=== PATIENT | female | born 1965 | race Caucasian/White ===

== ENCOUNTER 2016-10-03 17:52 | Emergency (ER) | payer OTHER ==
[~2016-10-03] VITALS: Ht 154.9 cm; Wt 99.0 kg
[~2016-10-03 17:52] MED LIST: CARV6.252 PO; LISI-360 PO; PRAV10 PO; [UNRECOGNIZED DRUG - CODE] PO
[2016-10-03 17:58] VITALS: BP 146/97; PULSE 86; RESP 16; TEMP 98.6; O2SAT 97
[2016-10-03] MEDS ORDERED: PRAV40TA2 PO (18:23)
[2016-10-03] MEDS ORDERED: LISI20TA PO (18:23)
[2016-10-03] MEDS ORDERED: CARV6.252 PO (18:23)
--- NOTE | 2016-10-03 18:42 | PD ---
HPI Chief Complaint: Multiple complaints Time Seen by Provider: 18:15 Travel History International Travel<30 days: No Contact w/Intl Traveler<30days: No Traveled to known affect area: No History of Present Illness HPI 51yo F with PMH of HTN and HLD presents to the ED with multiple complaints. States she was driving and at around 1pm when this tingling sensation that started in her head and went through her entire body and some lightheadedness lasted a minute. States it would come back but go away on its own. States she feels she has heavy breathing but is not sob. States she just does not feel well and it is hard to describe. Pt has been more stressed at work. She checked her blood pressure at home and it was systolic 160 so she was concern and came to the ED. BP in the ED is 146/97. Denies any fever, chest pain, visual changes, n/v, abdominal pain, focal weakness or numbness. PFSH Past Medical History High Cholesterol: Yes Diminished Hearing: No Hypertension: Yes ?: Not Past Surgical History Cholecystectomy: Yes Social History Alcohol Use: Yes (SOC) Tobacco Use: Yes (1/2 ppd) Substance Use: No Allergies-Medications (Allergen,Severity, Reaction): Coded Allergies: Penicillin (Verified Allergy, Intermediate, Hives, 10/03/16) Reported Meds & Prescriptions Reported Meds & Active Scripts Active Reported Carvedilol 6.25 Mg Tab 6.25 Mg PO BID Lisinopril-Hctz 20-12.5 Mg Tab 1 Tab PO DAILY Pravastatin 40 Mg Tab 40 Mg PO DAILY Review of Systems Except as stated in HPI: all other systems reviewed are Neg Physical Exam Narrative GENERAL: 51yo F not in distress. SKIN: Warm and dry. HEAD: Atraumatic. Normocephalic. EYES: Pupils equal and round. EOMI. +Horizontal nystagmus. No scleral icterus. No injection or drainage. ENT: No nasal bleeding or discharge. Mucous membranes pink and moist. NECK: Trachea midline. No JVD. CARDIOVASCULAR: Regular rate and rhythm. No murmur appreciated. RESPIRATORY: No accessory muscle use. Clear to auscultation. Breath sounds equal bilaterally. Pt speaking in complete sentences. GASTROINTESTINAL: Abdomen soft, non-tender, nondistended. No rebound tenderness or guarding. MUSCULOSKELETAL: No obvious deformities. No clubbing. No cyanosis. No edema. NEUROLOGICAL: Awake and alert. No obvious cranial nerve deficits. Motor grossly within normal limits. Normal speech. PSYCHIATRIC: Pt appears anxious. Data Data Last Documented VS Vital Signs Date Time Temp Pulse Resp B/P Pulse Ox O2 Delivery O2 Flow Rate FiO2 10/03/16 19:12 18 97 Room Air 10/03/16 19:12 68 132/78 10/03/16 17:58 98.6 Orders Electrocardiogram (10/03/16 ) Complete Blood Count With Diff (10/03/16 18:34) Comprehensive Metabolic Panel (10/03/16 18:34) Magnesium (Mg) (10/03/16 18:34) Thyroid Stimulating Hormone (10/03/16 18:34) Lorazepam (Ativan) (10/03/16 18:45) Labs Laboratory Tests Test 10/03/16 18:41 White Blood Count 7.2 TH/MM3 Red Blood Count 4.60 MIL/MM3 Hemoglobin 14.9 GM/DL Hematocrit 43.4 % Mean Corpuscular Volume 94.4 FL Mean Corpuscular Hemoglobin 32.3 PG Mean Corpuscular Hemoglobin 34.2 % Concent Red Cell Distribution Width 12.0 % Platelet Count 236 TH/MM3 Mean Platelet Volume 8.3 FL Neutrophils (%) (Auto) 60.5 % Lymphocytes (%) (Auto) 28.0 % Monocytes (%) (Auto) 5.9 % Eosinophils (%) (Auto) 4.8 % Basophils (%) (Auto) 0.8 % Neutrophils # (Auto) 4.4 TH/MM3 Lymphocytes # (Auto) 2.0 TH/MM3 Monocytes # (Auto) 0.4 TH/MM3 Eosinophils # (Auto) 0.3 TH/MM3 Basophils # (Auto) 0.1 TH/MM3 CBC Comment DIFF FINAL Differential Comment Sodium Level 140 MEQ/L Potassium Level 3.9 MEQ/L Chloride Level 105 MEQ/L Carbon Dioxide Level 27.0 MEQ/L Anion Gap 8 MEQ/L Blood Urea Nitrogen 15 MG/DL Creatinine 0.71 MG/DL Estimat Glomerular Filtration 86 ML/MIN Rate Random Glucose 95 MG/DL Calcium Level 8.7 MG/DL Magnesium Level 2.0 MG/DL Total Bilirubin 0.3 MG/DL Aspartate Amino Transf 13 U/L (AST/SGOT) Alanine Aminotransferase 28 U/L (ALT/SGPT) Alkaline Phosphatase 113 U/L Total Protein 7.1 GM/DL Albumin 3.6 GM/DL Thyroid Stimulating Hormone 0.911 uIU/ML 3rd Gen [facility] Medical Decision Making Medical Screen Exam Complete: Yes Emergency Medical Condition: Yes Interpretation(s) EKG: NSR 53bpm. Normal axis. No ST segment elevation or depression. T wave flattening in V2. Q wave III, aVF. Laboratory Tests Test 10/03/16 18:41 White Blood Count 7.2 TH/MM3 (4.0-11.0) Red Blood Count 4.60 MIL/MM3 (4.00-5.30) Hemoglobin 14.9 GM/DL (11.6-15.3) Hematocrit 43.4 % (35.0-46.0) Mean Corpuscular Volume 94.4 FL (80.0-100.0) Mean Corpuscular Hemoglobin 32.3 PG (27.0-34.0) Mean Corpuscular Hemoglobin 34.2 % Concent (32.0-36.0) Red Cell Distribution Width 12.0 % (11.6-17.2) Platelet Count 236 TH/MM3 (150-450) Mean Platelet Volume 8.3 FL (7.0-11.0) Neutrophils (%) (Auto) 60.5 % (16.0-70.0) Lymphocytes (%) (Auto) 28.0 % (9.0-44.0) Monocytes (%) (Auto) 5.9 % (0.0-8.0) Eosinophils (%) (Auto) 4.8 % (0.0-4.0) Basophils (%) (Auto) 0.8 % (0.0-2.0) Neutrophils # (Auto) 4.4 TH/MM3 (1.8-7.7) Lymphocytes # (Auto) 2.0 TH/MM3 (1.0-4.8) Monocytes # (Auto) 0.4 TH/MM3 (0-0.9) Eosinophils # (Auto) 0.3 TH/MM3 (0-0.4) Basophils # (Auto) 0.1 TH/MM3 (0-0.2) CBC Comment DIFF FINAL Differential Comment Sodium Level 140 MEQ/L (136-145) Potassium Level 3.9 MEQ/L (3.5-5.1) Chloride Level 105 MEQ/L (98-107) Carbon Dioxide Level 27.0 MEQ/L (21.0-32.0) Anion Gap 8 MEQ/L (5-15) Blood Urea Nitrogen 15 MG/DL (7-18) Creatinine 0.71 MG/DL (0.50-1.00) Estimat Glomerular Filtration 86 ML/MIN (>89) Rate Random Glucose 95 MG/DL (74-106) Calcium Level 8.7 MG/DL (8.5-10.1) Magnesium Level 2.0 MG/DL (1.5-2.5) Total Bilirubin 0.3 MG/DL (0.2-1.0) Aspartate Amino Transf 13 U/L (15-37) (AST/SGOT) Alanine Aminotransferase 28 U/L (10-53) (ALT/SGPT) Alkaline Phosphatase 113 U/L (45-117) Total Protein 7.1 GM/DL (6.4-8.2) Albumin 3.6 GM/DL (3.4-5.0) Thyroid Stimulating Hormone 0.911 uIU/ML 3rd Gen (0.358-3.740) Differential Diagnosis Anxiety vs. electrolyte abnormality vs. thyroid disorder vs. arrhythmia Narrative Course 51yo F with symptoms consistent with anxiety. Labs reviewed, no leukocytosis. Magnesium normal. Calcium normal. CMP unremarkable. TSH normal. Pt given ativan 0.5mg PO and feels better. Pt denies any more tingling in her body. VS showed normal BP, HR and pulse oximetry. Pt is well appearing and has no complaints now. Return precautions given. Diagnosis Primary Impression: Anxiety Patient Instructions: General Instructions Departure Forms: Tests/Procedures Additional Instructions: Please follow up with your PMD in 3-7 days. Return to the ED if symptoms worsen. Med/Other Pt SpecificInfo: No Change to Meds Disposition: 01 DISCHARGE HOME Condition: Stable Luli Figueroa Oct 03, 2016 18:42
[2016-10-03] MEDS ORDERED: LORazepam 0.5 MG TAB PO ONE (18:45)
[2016-10-03 18:51] LABS: AUTOMATED NEUTROPHIL # 4.4 TH/MM3 (1.8-7.7); BASOPHIL # 0.1 TH/MM3 (0-0.2); BASOPHIL % 0.8 % (0.0-2.0); EOSINOPHIL # 0.3 TH/MM3 (0-0.4); EOSINOPHIL % 4.8 % (0.0-4.0); HEMATOCRIT 43.4 % (35.0-46.0); HEMO FLAGS DIFF FINAL; MEAN CELL VOLUME 94.4 FL (80.0-100.0); MEAN CORPUSCULAR HEMOGLOBIN 32.3 PG (27.0-34.0); MEAN CORPUSCULAR HGB CONC 34.2 % (32.0-36.0); MONO % 5.9 % (0.0-8.0); NEUT % 60.5 % (16.0-70.0); PLATELET COUNT 236 TH/MM3 (150-450); WHITE BLOOD COUNT 7.2 TH/MM3 (4.0-11.0)
[2016-10-03 18:59] LABS: CHLORIDE 105 MEQ/L (98-107); POTASSIUM 3.9 MEQ/L (3.5-5.1); SODIUM (NA) 140 MEQ/L (136-145)
[2016-10-03 19:02] LABS: ANION GAP 8 MEQ/L (5-15); BLOOD UREA NITROGEN 15 MG/DL (7-18)
[2016-10-03 19:05] LABS: ALT (GPT) 28 U/L (10-53)
[2016-10-03 19:06] LABS: AST (GOT) 13 U/L (15-37); GLOMERULAR FILTRATION RATE 86 ML/MIN (>89)
[2016-10-03 19:07] LABS: TOTAL BILIRUBIN ADULT 0.3 MG/DL (0.2-1.0)
[2016-10-03 19:08] LABS: ALKALINE PHOSPHATASE 113 U/L (45-117)
[2016-10-03 19:12] VITALS: BP 132/78; PULSE 68; RESP 18; O2SAT 96
--- NOTE | 2016-10-04 13:58 | EKG ---
Date Performed: 10/03/2016 Time Performed: 18:38:56 PTAGE: 51 years EKG: Sinus rhythm Possible inferior infarct - age undetermined Low QRS voltages in precordial leads Abnormal ECG NO PREVIOUS TRACING DOCTOR: Maldonado Nolasco Interpretating Date/Time 10/04/2016 13:53:11
== END 2016-10-03 20:16 | disposition home or self-care (01) ==
LOC: PHED 17:52
DX: F41.9 Anxiety disorder, unspecified (principal); R20.2 Paresthesia of skin; E78.00 Pure hypercholesterolemia, unspecified; I10 Essential (primary) hypertension; F17.210 Nicotine dependence, cigarettes, uncomplicated; R94.31 Abnormal electrocardiogram [ECG] [EKG]
CPT/HCPCS: 80053; 83735; 84443; 85025; 93005